=== PATIENT | male | born 1985 | race Caucasian/White ===

== ENCOUNTER 2017-02-18 14:21 | Emergency (ER) | payer SELFPAY ==
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
== END 2017-02-18 15:08 | disposition disaster alternative care site (69) ==
LOC: GACC 14:21
PROC: 0HQDXZZ Repair Right Lower Arm Skin, External Approach (ICD-10-PCS; principal; 2017-02-18)
DX: S51.811A Laceration without foreign body of right forearm, initial encounter (principal); V29.9XXA Motorcycle rider (driver) (passenger) injured in unspecified traffic accident, initial encounter; Y93.55 Activity, bike riding